=== PATIENT | male | born 1965 | race Caucasian/White ===

== ENCOUNTER 2018-10-16 12:47 | Emergency (ER) | payer OTHER ==
[2018-10-16 14:15] VITALS: BP 166/100
--- NOTE | 2018-10-16 14:28 | UC ---
Respiratory Complaint HPI - HPI Summary HPI Summary: Pt presents with c/o cough, laryngitis, fatigue, wheezing, had influenza 3 weeks ago. - History of Current Complaint Chief Complaint: UCRespiratory Stated Complaint: COUGH,LOSS OF VOICE Time Seen by Provider: 10/16/18 14:10 Hx Obtained From: Patient Onset/Duration: Gradual Onset, Lasting Weeks, Still Present Timing: Constant Severity Initially: Mild Severity Currently: Moderate Pain Intensity: 0 Character: Cough: Nonproductive Aggravating Factors: Exertion, Deep Breaths, Recumbent Position Alleviating Factors: Nothing Associated Signs And Symptoms: Positive: Wheezing, URI, Nasal Congestion, Hoarseness - Risk Factors Pulmonary Embolism Risk Factors: Smoking Cardiac Risk Factors: Smoking, Diabetes Pseudomonas Risk Factors: Negative Tuberculosis Risk Factors: Diabetes, Smoking - Allergies/Home Medications Home Medications: Home Medications Aspirin [Aspir-Low] 81 mg PO DAILY 10/16/18 [History Confirmed 10/16/18] Insulin LISPRO* [HumaLOG*] 65 units SUBCUT BEDTIME 10/16/18 [History Confirmed 10/16/18] Ticagrelor* [Brilinta 90 MG*] 90 mg PO BID 10/16/18 [History Confirmed 10/16/18] PMH/Surg Hx/FS Hx/Imm Hx Previously Healthy: Yes - Surgical History Surgical History: Yes Surgery Procedure, Year, and Place: bowel resection. cardiac stent 06/06. L hip replacement . L knee. gallbladder - Family History Known Family History: Positive: Cardiac Disease - Social History Occupation: Employed Full-time Lives: With Family Alcohol Use: None Substance Use Type: None Smoking Status (MU): Heavy Every Day Tobacco Smoker Type: Cigarettes Amount Used/How Often: 1 ppd Length of Time of Smoking/Using Tobacco: since age 9 Have You Smoked in the Last Year: Yes - Immunization History Most Recent Influenza Vaccination: not this season Review of Systems All Other Systems Reviewed And Are Negative: Yes Constitutional: Positive: Chills, Fatigue Skin: Positive: Negative Eyes: Positive: Negative ENT: Positive: Sinus Congestion Respiratory: Positive: Cough Cardiovascular: Positive: Negative Gastrointestinal: Positive: Negative Genitourinary: Positive: Negative Motor: Positive: Negative Neurovascular: Positive: Negative Musculoskeletal: Positive: Negative Neurological: Positive: Negative Psychological: Positive: Negative Is Patient Immunocompromised?: No Physical Exam Triage Information Reviewed: Yes Appearance: Ill-Appearing Vital Signs: Initial Vital Signs Temp 97.8 F 10/16/18 14:09 Pulse 108 10/16/18 14:09 Resp 16 10/16/18 14:09 BP 166/100 10/16/18 14:09 Pulse Ox 100 10/16/18 14:09 Vital Signs Reviewed: Yes Eye Exam: Normal ENT: Positive: Nasal congestion Dental Exam: Normal Neck exam: Normal Respiratory: Positive: Decreased breath sounds, Wheezing Cardiovascular Exam: Normal Musculoskeletal Exam: Normal Neurological Exam: Normal Psychological Exam: Normal Skin Exam: Normal Respiratory Course/Dx - Differential Dx/Diagnosis Differential Diagnosis/HQI/PQRI: Bronchitis, Exacerbation Of COPD, Other - pnaumonia Provider Diagnosis: Bronchitis Discharge - Sign-Out/Discharge Documenting (check all that apply): Patient Departure All imaging exams completed and their final reports reviewed: No Studies - Discharge Plan Condition: Stable Disposition: HOME Prescriptions: Benzonatate CAP* [Tessalon 100 MG CAP*] 200 mg PO Q8H PRN #30 cap PRN Reason: Cough Cetirizine* [ZyrTEC 10 MG TAB*] 10 mg PO DAILY #30 tab DOXYcycline CAP(*) [DOXYcycline 100MG CAP(*)] 100 mg PO Q12H #20 cap predniSONE TAB* [Deltasone 20 MG TAB*] 20 mg PO DAILY #4 tab Patient Education Materials: Acute Bronchitis (ED) Referrals: Cassandra Koo NP [Primary Care Provider] - If Needed - Billing Disposition and Condition Condition: STABLE Disposition: Home - Attestation Statements Provider Attestation: I was available for consult. This patient was seen by the JAMES. The patient was not presented to, seen by, or examined by me. EK
== END 2018-10-16 14:42 | disposition home or self-care (01) ==
LOC: UCCORT 12:47
DX: J40 Bronchitis, not specified as acute or chronic (principal); E11.9 Type 2 diabetes mellitus without complications; F17.210 Nicotine dependence, cigarettes, uncomplicated; R09.81 Nasal congestion; R49.1 Aphonia; Z79.82 Long term (current) use of aspirin; Z79.4 Long term (current) use of insulin
CPT/HCPCS: 99212; G0463

== ENCOUNTER 2019-02-01 13:44 | Emergency (ER) | payer OTHER ==
[2019-02-01 14:30] VITALS: BP 144/90
--- NOTE | 2019-02-01 14:44 | UC ---
Skin Complaint HPI - HPI Summary HPI Summary: 53-year-old male comes in with a chief complaint of rash in both of his hands and arms. Started a week ago when he was cutting plants. Believes it was Wild [place]. There are several 1 away and he finished cutting yesterday and now he has more vesicles which are pruritic on both of his hands and arms. No fevers no chills feels well otherwise. Has not tried any medications. - History of Current Complaint Chief Complaint: UCRash Time Seen by Provider: 02/01/19 14:37 Stated Complaint: SKIN COMPLAINT Pain Intensity: 3 - Allergy/Home Medications Allergies/Adverse Reactions: Allergies Allergy/AdvReac Type Severity Reaction Status Date / Time morphine Allergy Hallucinati Verified 02/01/19 14:31 ons Penicillins Allergy Anaphylatic Verified 02/01/19 14:31 Shock Home Medications: Home Medications Insulin Lispro [Humalog] 100 unit SC DAILY 02/01/19 [History Confirmed 02/01/19] PMH/Surg Hx/FS Hx/Imm Hx Previously Healthy: Yes Endocrine History: Diabetes Cardiovascular History: Hypertension - Surgical History Surgical History: Yes Surgery Procedure, Year, and Place: bowel resection. cardiac stent 06/06. L hip replacement '. L knee. gallbladder - Family History Known Family History: Positive: Cardiac Disease - Social History Alcohol Use: None Substance Use Type: None Smoking Status (MU): Heavy Every Day Tobacco Smoker Type: Cigarettes Amount Used/How Often: 1 ppd Length of Time of Smoking/Using Tobacco: since age 9 Have You Smoked in the Last Year: Yes - Immunization History Most Recent Influenza Vaccination: not this season Review of Systems All Other Systems Reviewed And Are Negative: Yes Constitutional: Positive: Negative Skin: Positive: Other - see hpi ENT: Positive: Negative Respiratory: Positive: Negative Cardiovascular: Positive: Negative Gastrointestinal: Positive: Negative Motor: Positive: Negative Neurovascular: Positive: Negative Musculoskeletal: Positive: Negative Neurological: Positive: Negative Psychological: Positive: Negative Is Patient Immunocompromised?: No Physical Exam Triage Information Reviewed: Yes Appearance: Well-Appearing, No Pain Distress, Well-Nourished Vital Signs: Initial Vital Signs Temp 98.6 F 02/01/19 14:25 Pulse 104 02/01/19 14:25 Resp 16 02/01/19 14:25 BP 144/90 02/01/19 14:25 Pulse Ox 96 02/01/19 14:25 Vital Signs Reviewed: Yes Eye Exam: Normal Eyes: Positive: Conjunctiva Clear Neck: Positive: Supple Respiratory: Positive: No respiratory distress Musculoskeletal: Positive: Strength Intact Neurological: Positive: Alert Psychological: Positive: Age Appropriate Behavior Skin: Positive: Other - On both hands and forearms patient has a diffuse rash with multiple vesicles that are 5-10 mm in diameter. Vesicles are clear fluid in them. No drainage. No streaking. Course/Dx - Diagnoses Provider Diagnosis: Contact dermatitis Discharge - Sign-Out/Discharge Documenting (check all that apply): Patient Departure All imaging exams completed and their final reports reviewed: No Studies - Discharge Plan Condition: Stable Disposition: HOME Prescriptions: methylPREDNISolone [Medrol Dosepak 4 MG*] 0 mg PO .SEE MARTHA INSTRUCTION #1 martha Patient Education Materials: Contact Dermatitis (ED) Referrals: Cassandra Koo NP [Primary Care Provider] - Additional Instructions: FOLLOW UP WITH YOUR DOCTOR IF NOT COMPLETELY IMPROVED. GET REEVALUATED SOONER IF WORSE OR ANY QUESTIONS OR CONCERNS. - Billing Disposition and Condition Condition: STABLE Disposition: Home
== END 2019-02-01 14:49 | disposition home or self-care (01) ==
LOC: UCCORT 13:44
DX: L25.9 Unspecified contact dermatitis, unspecified cause (principal); E11.9 Type 2 diabetes mellitus without complications; Z79.4 Long term (current) use of insulin; I10 Essential (primary) hypertension; F17.210 Nicotine dependence, cigarettes, uncomplicated
CPT/HCPCS: 99212; G0463

== ENCOUNTER 2019-08-23 08:24 | Emergency (ER) | payer OTHER ==
--- OUTSIDE RECORDS SUMMARY | 2019-08-23 08:32 | XMS REPORT | Continuity of Care Document ---
:1965 External Reference #:[id number] Author Name Mirta Koo FNP Address [address] [place] [id number] Care Team Providers Name Role Phone Mirta Koo, PAULA - Nurse Care Team Information Medical Billing Specialist [phone] Practitioner Toni Mcgraw MD [facility] - Care Team Information Medical Billing Specialist [phone] Cardiovascular Disease Nasim Aguilera M.D. - Orthopaedic Care Team Information Medical Billing Specialist [phone] Surgery Vinay Patiño M.D. - Surgery Care Team Information Medical Billing Specialist [phone] Kala Linares MD - Care Team Information Medical Billing Specialist [phone] Endocrinology, Diabetes & Metabolism Sivakumar Rodrigez M.D. Care Team Information Medical Billing Specialist [phone] Problems Active Problems Provider Date Type II diabetes mellitus Toni Mcgraw M.D., [facility] Onset: 03/27/2016 uncontrolled Adrenal mass Mirta Koo FNP Onset: 10/16/2016 Note: Xray: 10/16/16 - CT Abdomen, W/O Contrast Angina pectoris Clementina Myles, CALVIN, Onset: 12/27/2013 ELIGIBILITY SUPERVISOR Coronary arteriosclerosis Clementina Myles, MSN, Onset: 12/27/2013 ELIGIBILITY SUPERVISOR Essential hypertension Nallely Giraldo MD Onset: 04/12/2013 Hyperlipidemia Clementina Myles, MSN, Onset: 12/27/2013 ELIGIBILITY SUPERVISOR Tobacco user Clementina Myles, MSN, Onset: 12/27/2013 ELIGIBILITY SUPERVISOR Arthralgia of the lower leg Toni Mcgraw M.D., Onset: 06/22/2014 [facility] Morbid obesity Toni Mcgraw M.D., Onset: 03/06/2015 [facility] Steatosis of liver Mirta Koo FNP Onset: 10/04/2015 Atherosclerotic heart disease of Toni Mcgraw M.D., Onset: 03/27/2016 sokaogon coronary artery with [facility] unspecified angina pectoris Gynecomastia Mirta Koo FNP Onset: 10/21/2016 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 Onset: 03/08/2019 Depressive disorder Mirta Koo FNP Onset: 03/28/2019 Social History Type Date Description Comments Sex Unknown Cigarette Use Pack Years - 30 Tobacco Use Start: Unknown Current Cigarette Smoker 1 Pack Daily Smokeless Tobacco Never Used Smokeless Tobacco ETOH Use Denies alcohol use Recreational Drug Use Denies Drug Use Tobacco Use Start: Unknown Patient is a current smoker, smokes every day Tobacco Use Start: Unknown Heavy tobacco smoker (more than 10 cigarettes/day) Smoking Status Reviewed: 08/09/19 Heavy tobacco smoker (more than 10 cigarettes/day) Allergies, Adverse Reactions, Alerts Active Allergies Reaction Severity Comments Date Penicillin 12/27/2013 Morphine 12/27/2013 Medications Active Medications SIG Qnty Indications Ordering Date Provider Brilinta 1 tab by mouth R10.31 Clementina Myles 03/28/2019 60mg Tablets twice a day Padmini, MSN, ELIGIBILITY SUPERVISOR Venlafaxine HCL ER 2 in am and 1 at 270caps F32.89 [place], 03/28/2019 at bedtime mdd#3 Mirta, 75mg Caps ER 24HR ELIGIBILITY SUPERVISOR Metoprolol Succinate 1 tab by mouth 90tabs I10 Toni Mcgraw 12/27/2018 ER every day Ed Perez, FACC 50mg Tablets ER 24HR Humalog Kwikpen inject 10 units SQ E11.65 Unknown 11/02/2018 before meals 100Unit/ML Solution Pen-Inject Freestyle Freedom 14 to be used for E13.9 Unknown 10/18/2018 Day/[place]/Flash continuous blood Monitoring System sugar monitoring *e10.65 Device Nystatin-Triamcinolo apply to affected 15gm N48.1 [place], 06/01/2018 ne areas twice daily Mirta, after completely ELIGIBILITY SUPERVISOR 632449-6.1Unit/GM-% drying Cream Nystatin apply to affected 60gm N48.1 [place], 06/01/2018 area as needed Mirta, 467603Tzrk/GM Powder ELIGIBILITY SUPERVISOR Lyrica one tablet by 60caps E11.42 [place], 01/25/2018 150mg Capsules mouth twice a day Mirta, Reference #: [facility] [id number] mdd#2 Aspirin 81 Low Dose once a day 90units Toni Mcgraw 09/28/2017 Ed Perez, FACC 81mg Chewtabs [place] one every four 180tabs E11.42 [place], 06/23/2017 5-325mg Tablets hours as needed Mirta, for moderate to ELIGIBILITY SUPERVISOR severe pain mdd#6 D49.7 G89.29 Pentips use once daily 100units E11.65 [place], 02/05/2016 32G X 4 mm Misc for insulin dx: EMILY Kirby e11.65 Alcohol Pads use prior to 100units E13.9 Clnitesh, 04/16/2015 70% Pads finger stick EMILY Kirby testing for diabetes / blood sugars as directed - dx: 250.02 Magnesium Oxide 1 by mouth twice 180caps Becca Marquez, 03/29/2014 400mg a day [place] Capsules Nitro-Dur on 12 hr/ off 12 90units Toni Mcgraw, 02/16/2014 0.4mg/HR hour M.D., FACC Patches 24HR Ibuprofen one by mouth Unknown 800mg Tablets every 6 hours using OTC medication Atorvastatin Calcium 1 by mouth every 90tabs Toni Mcgraw, day M.D., FACC 80mg Tablets Pantoprazole Sodium 1 by mouth every Unknown day 40mg Tablets Lisinopril take one tablet 90tabs Toni Mcgraw, 10mg Tablets by mouth every M.D., FACC day Actos tabs by mouth Unknown 30mg Tablets every day Jardiance 1 tab by mouth Unknown 25mg Tablets every morning Lantus Solostar Inject 40 Units Unknown Under The Skin 100Unit/ML Solution bid Pen-Inject Glycopyrrolate Take One Tablet Unknown 1mg By Mouth Twice A Tablets Day Before Meals Immunizations CPT Code Status Date Vaccine Lot # U-Flu Given 04/29/2019 Influenza,Unspecified 25751 Given 05/28/2018 Influenza Virus Vaccine, Quadrivalent, 36 Mos+, .5ML 92036 Given 05/01/2017 Influenza Virus Vaccine, Quadrivalent, Slit Virus, [id number] Im Use 25494 Given 01/17/2016 Pneumovax Injection [id number] Q2038 Given 09/10/2015 Influenza Vaccine (Fluzone) Age 3 And Older [id number] 54816 Given 04/12/2014 Influenza Virus Split Children 6-35 Mo Of Age Intramuscular Use 14908 Given 08/19/2013 flu vaccination 18269 Given Unknown Pneumovax Injection 86088 Given Unknown Influenza Virus Vaccine, Quadrivalent, 36 Mos+, .5ML Vital Signs Date Vital Result Comment 08/09/2019 8:36am BP Systolic Sitting Left Arm 122 mmHg BP Diastolic Sitting Left Arm 76 mmHg Body Temperature 97.9 F Heart Rate 92 /min Respiratory Rate 18 /min Height 65 inches 5'5" Weight 216.38 lb BMI (Body Mass Index) 36.0 kg/m2 BSA (Body Surface Area) 2.05 m2 [place] body weight in kilograms 62 kg Both Visual Acuity Near 92 Right Visual Acuity Distance 18 Right Visual Acuity Near 92 06/07/2019 7:58am BP Systolic 139 mmHg BP Diastolic 95 mmHg Body Temperature 97.6 F Heart Rate 94 /min Height 65 inches 5'5" Weight 214.00 lb BMI (Body Mass Index) 35.6 kg/m2 BSA (Body Surface Area) 2.04 m2 [place] body weight in kilograms 62 kg O2 % BldC Oximetry 97 % Results Test Acquired Date Facility Test Result H/L Range Note Urine Dipstick 03/28/2019 [facility] Inhouse Ua Color yellow Yellow Ua Clarity clear Clear Ua Leuko negative Negative Ua Nitrite negative Negative Ua Urobilinogen 0.2 0.2 - 1.0 E.U./dL Ua Protein negative Negative Ua PH 5.5 Low 6.5-7.5 Ua Blood negative Negative Ua Specific [place] 1.015 1.010-1.030 Ua Ketones negative Negative Ua Bilirubin negative Negative Ua Glucose 60 mmol/L High Negative Urine Dipstick 03/08/2019 [facility] Inhouse Ua Color yellow Yellow Ua Clarity clear Clear Ua Leuko neg Negative Ua Nitrite neg Negative Ua Urobilinogen 0.2 0.2 - 1.0 E.U./dL Ua Protein neg Negative Ua PH 5.5 Low 6.5-7.5 Ua Blood neg Negative Ua Specific [place] 1.010 1.010-1.030 Ua Ketones neg Negative Ua Bilirubin neg Negative Ua Glucose neg Negative CBC W/Automated 03/04/2019 [facility] White Blood 12.3 K/uL High 3.4-10.[address] Count [place], [place] [id number] [phone] Red Blood Count 5.39 M/uL Normal 4.20-5.80 Hemoglobin 17.1 gm/dL High 12.8-17.0 Hematocrit 48.3 % High 38.0-48.0 Mean Cell Volume 89.6 fl Normal 80.0-96.0 Mean Corpuscular HGB 31.7 pg Normal 27.0-33.0 Mean Corpuscular HGB Conc 35.4 g/dL Normal 31.7-36.0 Platelet Count 217 K/uL Normal 155-360 Red Cell Distri Width SD 43.6 fl Normal 36-51 Red Cell Distri Width %CV 13.5 % Normal 11.6-15.8 Mean Platelet Volume 10.8 fl High 6.6-10.6 Neut% 46.6 % Normal 33.0-73.0 Lymph % 41.3 % Normal 20.0-42.0 [place] % 7.4 % Normal 0.0-10.0 Eo% 2.8 % Normal 0.0-6.6 Bas% 0.9 % Normal 0.0-1.1 Immature Grans 1.0 % Normal 0.0-5.0 NRBC % 0.0 /100WBC < 10/ 100 WBC Neut# 5.75 K/uL Normal 1.8-7.0 Lymph # 5.08 K/uL High 1.0-4.0 [place] # 0.91 K/uL High 0.0-0.8 Eos # 0.34 K/uL Normal 0.0-0.5 Baso # 0.11 K/uL High 0.0-0.1 Immature Grans Absolute 0.12 K/uL NRBC # 0.00 K/uL Comprehensive Metabolic 03/04/2019 [facility] Glucose 246 mg/dL High 74-106 Panel [address] [place], [place] [id number] [phone] BUN 6 mg/dL Low 7-18 Creatinine 1.0 mg/dL Normal 0.6-1.3 Glom Filtration Rate, Estimate >60 mL/min >60 If >60 mL/min >60 2 BUN/Creat 6.0 ratio Sodium 134 mmol/L Low 136-145 Potassium 4.4 mmol/L Normal 3.5-5.1 Chloride 103 mmol/L Normal 98-107 Carbon Dioxide 27 mmol/L Normal 21-32 Anion Gap 4 mEq/L Low 8-16 Calcium 9.1 mg/dL Normal 8.5-10.1 Total Protein 7.6 g/dL Normal 6.4-8.2 Albumin 3.7 g/dL Normal 3.4-5.0 Globulin 3.9 g/dL Normal 1.9-4.3 Alb/Glob 0.9 ratio Bilirubin,Total 0.4 mg/dL Normal 0.2-1.0 Sgot/Ast 19 U/L Normal 15-37 SGPT/Alt 29 U/L Normal 12-78 Alkaline Phosphatase 140 U/L High 45-117 Microalb/Creat 03/04/2019 [facility] Microalbumin,Urine < 5.0 < 20.0 Ratio,Random [address] mg/L [place] [id number] [phone] Microalbumin/Creatinine Ratio TNP ug/mgCrt < 30.0 3 Urine Creatinine Conc 121 mg/dL Ua RFX Micro & Culture 03/04/2019 [facility] Urine Color YELLOW Yellow II [address] [place] [id number] [phone] Urine Clarity CLEAR Clear Urine Glucose - Dipstick 500 mg/dL High Negative Urine Bilirubin - Dipstick NEGATIVE Negative Urine Ketone NEGATIVE mg/dL Negative Urine Specific [place] 1.015 Normal 1.010-1.030 Urine Blood NEGATIVE Negative Urine PH 5.5 Low 6.5-7.5 Urine Protein - Dipstick NEGATIVE mg/dL Negative Urine Urobilinogen - Dipstick 0.2 E.U./dL Normal 0.2-1.0 Urine Nitrite - Dipstick NEGATIVE Negative Urine Leuk Esterase NEGATIVE Negative Source: URINE, CLEAN CAT <SEE NOTE> 4 Slide Review 03/04/2019 [facility] Slide Review DIFF ORDERED [address] [place] [id number] [phone] Path Review: 03/04/2019 [facility] Path Review: INDICATED,SLIDE [address] <SEE NOTE> [place] [id number] [phone] Differential-WBC 03/04/2019 [facility] Total Cells 100 #CELLS Confirm [address] [place] [address] [phone] Neutrophils% 47 % Normal 33-73 Lymph% 42 % Normal 20-42 Atypical Lymph% 6 % Normal 0-7 Monocyte% 2 % Normal 0-10 Eosinophil% 1 % Normal 0-5 Basophil% 2 % Normal 0-2 Platelet Estimate NORMAL RBC Morphology NORMAL 1 R10.31 K29.50 2 Note: Persistent reduction for 3 months or more in an eGFR <60 mL/min/1.73 m2 defines CKD. Patients with eGFR values >/=60 mL/min/1.73 m2 may also have CKD if evidence of persistent proteinuria is present. The original MDRD equation for estimated GFR is not valid for patients less than 18 years of age. Additional information may be found at www.kdoqi.org. 3 Valid ratio could not be calculated due to non-numeric result. 4 URINE, CLEAN CATCH 5 INDICATED,SLIDE SENT Hematology Consultation - Final Report Case# [id number] Final Diagnosis REVIEW OF PERIPHERAL BLOOD SMEAR Review of peripheral blood smear confirms the hemogram findings. There is mild absolute lymphocytosis. The lymphocytes are small in size and show hypercondensed chromatin ("cellule grumelee"). There are a few smudge cells. The findings are suspicious for chronic lymphocytic leukemia. Flow cytometric analysis of the peripheral blood is recommended to refute or confirm the diagnosis. Also the RBC count, hemoglobin and hematocrit are increased. If there is no cause of secondary erythrocytosis, work-up for polycythemia vera should be considered. Gross Description Peripheral blood smear Clinical Data Absolute lymphocytosis and increased hemoglobin Jagdeep Pro M.D., Pathologist Reported 03/07/2019 at 12:50PM, Report electronically signed Performed at: [facility] [id number] [address] Procedures Date Code Description Status 06/07/2019 90800 Debridement Nails Any Method 6 Or More Completed 06/07/2019 784791170 Diabetic Foot Exam Completed 05/30/2019 79356 Brief Emotional/Behav Assessment W/ Scoring Doc Per Completed Standard Inst 03/29/2019 92727 Debridement Nails Any Method 6 Or More Completed 03/08/2019 90755 Measurement Post Voiding Residual Urine By Completed Ultrasound,Non-Imaging 03/08/2019 14682 complex uroflowmetry electronic Completed 03/08/2019 07098 Excise nail & matrix partial/complete for permanent Completed removal 03/05/2006 60030719 Colonoscopy Completed 03/12/2005 45371078 Colonoscopy Completed 05/22/2003 63166532 Colonoscopy Completed Medical Devices Description No Information Available Encounters Type Date Location Provider Dx Diagnosis Office Visit 08/09/2019 Family Silva Koo, M54.12 Radiculopathy, 9:[address]a [address] Mirta cervical region ELIGIBILITY SUPERVISOR Z76.0 Encounter for issue of repeat prescription Office Visit 05/30/2019 Family Koo, E11.42 Type 2 diabetes 8:00a Medicine EMILY Mckeon mellitus with RD diabetic polyneuropathy S46.012A Strain of musc/tend the rotator cuff of left shoulder, init W01.0xxA Fall same lev from slip/trip w/o strike against object, init I10 Essential (primary) hypertension F32.89 Other specified depressive episodes 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 Office Visit 03/29/2019 Podiatry Raúl Rod, E11.42 Type 2 diabetes 8:00a Office DPM mellitus with diabetic polyneuropathy L60.0 Ingrowing nail Office Visit 03/28/2019 3:15p Family Clnitesh, R10.31 Right lower Medicine [place] MARIO KirbyP quadrant pain RD F32.89 Other specified depressive episodes Office Visit 03/28/2019 9:20a Cardiology Office Clementina Myles I25.10 Athscl heart Padmini, CALVIN, disease of ELIGIBILITY SUPERVISOR [place] coronary artery w/o ang pctrs I10 Essential (primary) hypertension E78.5 Hyperlipidemia, unspecified M79.606 Pain in leg, unspecified Office Visit 03/08/2019 9:30a Urology Anahy Lane, R10.31 Right lower M.D. quadrant pain D35.01 Benign neoplasm of right adrenal gland Z71.6 Tobacco abuse counseling Office Visit 03/03/2019 4:00p GI Everett Mansfield MD K29.50 Unspecified chronic gastritis without bleeding R10.31 Right lower quadrant pain Assessments Date Code Description Provider 08/09/2019 M54.12 Radiculopathy, cervical region Mirta Koo, ELIGIBILITY SUPERVISOR 08/09/2019 Z76.0 Encounter for issue of repeat Mirta Koo, ELIGIBILITY SUPERVISOR prescription 06/07/2019 E11.42 Type 2 diabetes mellitus with Raúl Rod DPM diabetic polyneuropathy 05/30/2019 E11.42 Type 2 diabetes mellitus with Mirta Koo, ELIGIBILITY SUPERVISOR diabetic polyneuropathy 05/30/2019 S46.012A Strain of muscle(s) and tendon(s) Mirta Koo FNP of the rotator cuff of left shoulder, initial encounter 05/30/2019 W01.0xxA Fall on same level from slipping, Mirta dowling, [facility] tripping and stumbling without subsequent striking against object, initial encounter 05/30/2019 I10 Essential (primary) hypertension Mirta Koo, [facility] 05/30/2019 F32.89 Other specified depressive episodes Mirta Koo, [facility] 05/30/2019 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 03/29/2019 E11.42 Type 2 diabetes mellitus with Raúl Rod DPM diabetic polyneuropathy 03/29/2019 L60.0 Ingrowing nail Raúl Rod DPM 03/28/2019 I25.10 Atherosclerotic heart disease of Clementina Myles, CALV[place], [place] coronary artery with [facility] 03/28/2019 R10.31 Right lower quadrant pain Mirta Koo, [facility] 03/28/2019 F32.89 Other specified depressive episodes Mirta Koo, [facility] 03/28/2019 I10 Essential (primary) hypertension Clementina Myles, MSN, [facility] 03/28/2019 E78.5 Hyperlipidemia, unspecified Clementina Myles, MSN, [facility] 03/28/2019 M79.606 Pain in leg, unspecified Clementina Myles, [place], [facility] 03/16/2019 L60.0 Ingrowing nail Raúl Rod, [facility] 03/08/2019 R10.31 Right lower quadrant pain Anahy Lane M.D. 03/08/2019 L60.0 Ingrowing nail Raúl Rod DPM 03/08/2019 D35.01 Benign neoplasm of right adrenal Anahy Lane M.D. gland 03/08/2019 M79.675 Pain in left toe(s) Raúl Rod DPM 03/08/2019 Z71.6 Tobacco abuse counseling Anahy Lane M.D. 03/08/2019 E11.42 Type 2 diabetes mellitus with Raúl Rod DPM diabetic polyneuropathy 03/03/2019 K29.50 Unspecified chronic gastritis Everett Mansfield MD without bleeding 03/03/2019 R10.31 Right lower quadrant pain Everett Mansfield MD Plan of Treatment Future Appointment(s):11/08/2019 8:15 am - Mirta Koo, ELIGIBILITY SUPERVISOR at [facility]09/26/2019 8:00 am - Clementina Myles, [place], ELIGIBILITY SUPERVISOR at Cardiology Office Functional Status Functional Condition Comment Date Status Independent with all ADL's Active Standard cane is used with the right for bilateral knee, left hip pain Active hand to ambulate and diabetic neuropathy Mental Status Description No Information Available Referrals Refer to Dr Reason for Referral Status Appt Date Kvng Lagunas MD Right lower quadrant pain x 6 months Closed 04/07 increasing, had U/S done today (ordered by Dr. Mansfield). Suspect hernia. [address] [place] [address] [phone] M.D. Right lower quadrant pain - Donal ordered Closed 03/08/2019 Pelvic US and labs [address] [place] [address] [phone]
[2019-08-23 08:46] VITALS: BP 138/92
--- NOTE | 2019-08-23 09:21 | UC ---
[facility] Dental HPI - HPI Summary HPI Summary: dental pain x 2 weeks pain is 6 out 10 , worse with cold, and chewing, better with Tylenol dental swelling / abscess, denies any fever, no chills has an appointment with his dentist on 09/10 - History of Current Complaint Chief Complaint: UCDentalProblem Stated Complaint: DENTAL COMPLAINT Time Seen by Provider: 08/23/19 08:29 Hx Obtained From: Patient Onset/Duration: Gradual Onset, Lasting Weeks - 2, Still Present Severity: Moderate Pain Intensity: 5 Aggravating Factor(s): Cold, Chewing Alleviating Factor(s): OTC Meds Dental: 1 - dental pain / abscess - Allergies/Home Medications Allergies/Adverse Reactions: Allergies Allergy/AdvReac Type Severity Reaction Status Date / Time morphine Allergy Hallucinati Verified 08/23/19 08:40 ons Penicillins Allergy Anaphylatic Verified 08/23/19 08:40 Shock Home Medications: Home Medications Pregabalin 25 mg CAP (*) [Lyrica 25 mg CAP (*)] 25 mg PO BID 08/23/19 [History Confirmed 08/23/19] PMH/Surg Hx/FS Hx/Imm Hx Endocrine History: Diabetes Cardiovascular History: Cardiac Disease, Hypertension GI/ History: Diverticulitis - Surgical History Surgical History: Yes Surgery Procedure, Year, and Place: bowel resection. cardiac stent 06/06. L hip replacement '. L knee. gallbladder - Family History Known Family History: Positive: Cardiac Disease - Social History Alcohol Use: None Substance Use Type: None Smoking Status (MU): Heavy Every Day Tobacco Smoker Type: Cigarettes Amount Used/How Often: 1 ppd Length of Time of Smoking/Using Tobacco: since age 9 Have You Smoked in the Last Year: Yes - Immunization History Most Recent Influenza Vaccination: not this season Review of Systems All Other Systems Reviewed And Are Negative: Yes Constitutional: Positive: Negative Skin: Positive: Negative Eyes: Positive: Negative ENT: Positive: Dental Pain Respiratory: Positive: Negative Is Patient Immunocompromised?: No Physical Exam Triage Information Reviewed: Yes Appearance: Well-Appearing, No Pain Distress, Well-Nourished Vital Signs: Initial Vital Signs Temp 99 F 08/23/19 08:42 Pulse 117 08/23/19 08:42 Resp 16 08/23/19 08:42 BP 138/92 08/23/19 08:42 Pulse Ox 97 08/23/19 08:42 Vital Signs Reviewed: Yes Eye Exam: Normal Eyes: Positive: Conjunctiva Clear ENT: Positive: Normal ENT inspection, Hearing grossly normal, Pharynx normal Dental: Positive: Percussion Tenderness @ - #18, Gross Decay/Caries @ - #18, Abscess @ - #18 Neck: Positive: Supple, Nontender, No Lymphadenopathy Respiratory: Positive: Chest non-tender, Lungs clear, Normal breath sounds Cardiovascular: Positive: RRR, No Murmur, Pulses Normal Abdominal Exam: Normal Dental Complaint Course/Dx - Differential Dx/Diagnosis Provider Diagnosis: Dental abscess Discharge ED - Sign-Out/Discharge Documenting (check all that apply): Patient Departure All imaging exams completed and their final reports reviewed: No Studies - Discharge Plan Condition: Stable Disposition: HOME Prescriptions: Clindamycin Cap(NF) [Clindamycin Cap 300 mg Cap(NF)] 300 mg PO Q6H #40 cap Patient Education Materials: Dental Abscess (ED) Referrals: Cassandra Koo NP [Primary Care Provider] - 7 Days - Billing Disposition and Condition Condition: STABLE Disposition: Home
== END 2019-08-23 09:17 | disposition home or self-care (01) ==
LOC: UCCORT 08:24
DX: K04.7 Periapical abscess without sinus (principal); E11.9 Type 2 diabetes mellitus without complications; I10 Essential (primary) hypertension; Z88.0 Allergy status to penicillin; Z88.5 Allergy status to narcotic agent; F17.210 Nicotine dependence, cigarettes, uncomplicated
CPT/HCPCS: 99212; G0463